=== PATIENT | female | born 1970 | race Caucasian/White ===

== ENCOUNTER 2020-05-16 11:25 | Observation (INO) | payer BC, OTHER ==
[2020-05-16] MEDS ORDERED: Sodium Chloride 0.9% 10 ML Syringe FLUSH PRN ×2 (11:31)
[2020-05-16] MEDS ORDERED: Sodium Chloride 0.9% 1,000 ML IV ONE (11:31)
[2020-05-16] MEDS ORDERED: Midazolam 1 MG/ML 2 ML SDV IVPUSH ONE (11:43)
--- NOTE | 2020-05-16 11:46 | EDM.PDOC ---
ED HPI GENERAL MEDICAL PROBLEM - General Chief Complaint: Trauma Stated Complaint: head injury Time Seen by Provider: 05/16/20 11:25 Source of Information: Reports: Family - History of Present Illness INITIAL COMMENTS - FREE TEXT/NARRATIVE: Maribel, 49-year-old female, presents by private vehicle unresponsive slumped in the front seat of a pickup driven by her . Secondary of poor positioning for assessment she was moved onto a cart as cautiously and rapid as possible to allow for assessment and extrication from the automotive to the emergency department. [place] was [place] her was scooping/pushing manure and had unearth a piece of pipe roughly 2 feet long. She had picked that up and was carrying it off to the side of the barn where it is unknown if she threw the pipe and it bounced back striking her, or if she stumbled and fell with a pipe striking her. When her came back in her direction with the skid steer she was unresponsive lying on the ground with the pipe next to her, contusion to the left side of the forehead was noted with mild bleeding. She awoke briefly but did not provide details of the injury and got to the vehicle at which time she became unresponsive in route. This was an unwitnessed event of the actual injury causation. Onset: Today, Sudden Duration: Minutes: Location: Reports: Head Left Frontal Head Pain Score (Numeric/FACES): 8 - Related Data Allergies Allergy/AdvReac Type Severity Reaction Status Date / Time ampicillin Allergy Rash Verified 02/23/18 19:48 Home Meds: Home Meds dimenhyDRINATE [Dramamine] 50 mg PO DAILY 08/02/13 [History] Erythromycin Base [Erythromycin 0.5% Ophth Oint] 1 applic TOP TID 02/23/18 [History] Lisdexamfetamine Dimesylate [Vyvanse] 70 mg PO DAILY 02/23/18 [History] Vitamin B Complex 1 each PO DAILY 02/23/18 [History] Past Medical History HEENT History: Reports: Impaired Vision Cardiovascular History: Reports: None APPLICATION SUPPORT INTERN History: Reports: Musculoskeletal History: Reports: Arthritis - Infectious Disease History Infectious Disease History: Reports: None - Past Surgical History GI Surgical History: Reports: Appendectomy, Cholecystectomy Female Surgical History: Reports: Hysterectomy - Past Imaging History Past Imaging History: Reports: Xray Social & Family History - Family History Family Medical History: Noncontributory - Caffeine Use Caffeine Use: Reports: Coffee, Soda - Alcohol Use Alcohol Use History: Yes Alcohol Use Frequency: Daily ED ROS GENERAL - Review of Systems Review Of Systems: Unable To Obtain Reason Not Obtained: unresposive ED EXAM, GENERAL - Physical Exam Exam: See Below Free Text/Narrative:: Unresponsive female with noted trauma to the left forehead. Talya coma score of 3. pupils are at 8 mm and very sluggish to reaction. She does not respond to sternal rub but maintains adequate respirations and heart rate. HEENT has a contusion abrasion with a small laceration to the left forehead with no active bleeding. The remainder of the scalp and skull are intact to visualization and palpation. There is negative blood in the auditory canals There is no trauma to the facial features no crepitus, no drainage, nasal passages are patent, no blood in the oropharynx. Cervical collar is placed as she is flaccid upon arrival. Thorax is clear diminished breath sounds, full throughout all cortes. As she is not following command for deep breath, but with no wheezes no crackles. Cardiac is regular I do not appreciate any murmur S1-S2. There is no trauma to the extremities noted. Abdomen is soft bowel sounds are present. Clothing is removed extremities are free of any injury there is no evidence of injury to the back nor to the buttocks. Pelvis is stable to AP compression. Skin is warm and dry with no edema to the extremities pulses correlate with apical heart rate. (Female) Exam: Deferred Rectal (Female) Exam: Deferred EKG INTERPRETATION EKG Date: 05/16/20 Time: 12:36 Rhythm: NSR Rate (Beats/Min): 78 P-Wave: Present QRS: Normal ST-T: Normal QT: Prolonged Comparison: NA - No Prior EKG Course - Vital Signs Last Recorded V/S: Last Vital Signs Temp 36.0 C L 05/16/20 11:40 Pulse 73 05/16/20 11:40 Resp 19 05/16/20 11:40 BP 117/72 05/16/20 11:40 Pulse Ox 100 05/16/20 11:40 - Orders/Labs/Meds Orders: Active Orders 24 hr Category Date Time Status Patient Status [ADT] Routine ADT 05/16/20 14:56 Ordered Assess Neurological Status [RC] ASDIRECTED Care 05/16/20 14:30 Active Insert Corrales Catheter [Insert Urinary Catheter] [OM.PC] Care 05/16/20 11:30 Ordered Q24H Neurovascular Check [RC] BID Care 05/16/20 14:17 Active Peripheral IV Care [RC] . DIRECTED Care 05/16/20 11:31 Active Peripheral IV Care [RC] . DIRECTED Care 05/16/20 11:32 Active Telemetry Monitoring [Cardiac Monitoring] [RC] . Care 05/16/20 14:16 Active DIRECTED Urinary Catheter Assessment [RC] ASDIRECTED Care 05/16/20 11:31 Active Vaccines to be Administered [RC] PER UNIT ROUTINE Care 05/16/20 12:50 Active Nothing Per Oral Diet [DIET] Diet 05/16/20 Dinner Ordered COMPREHENSIVE METABOLIC PN,CMP [CHEM] Stat Lab 05/17/20 05:11 Ordered ETHANOL BLOOD MEDICAL [CHEM] Stat Lab 05/16/20 18:00 Ordered TROPONIN I [CHEM] Stat Lab 05/16/20 18:00 Ordered Folic Acid Med 05/17/20 09:00 Active 1 mg IV DAILY Sodium Chloride 0.9% [Normal Saline] 1,000 ml Med 05/16/20 14:00 Active IV ASDIRECTED Sodium Chloride 0.9% [Saline Flush] Med 05/16/20 11:31 Active 10 ml FLUSH Q8HR PRN Sodium Chloride 0.9% [Saline Flush] Med 05/16/20 11:31 Active 10 ml FLUSH Q8HR PRN Peripheral IV Insertion Adult [OM.PC] Routine Oth 05/16/20 11:31 Ordered Peripheral IV Insertion Adult [OM.PC] Routine Oth 05/16/20 11:32 Ordered Code Status [Resuscitation Status] Stat Resus Stat 05/16/20 15:05 Ordered EKG 12 Lead [EK] Urgent Ther 05/16/20 12:12 Ordered Medication Orders Folic Acid (Folic Acid) 1 mg IV DAILY CITLALY Sodium Chloride (Normal Saline) 1,000 mls @ 150 mls/hr IV ASDIRECTED CITLALY Sodium Chloride (Saline Flush) 10 ml FLUSH Q8HR PRN PRN Reason: keep vein open Sodium Chloride (Saline Flush) 10 ml FLUSH Q8HR PRN PRN Reason: keep vein open Labs: Laboratory Tests 05/16/20 05/16/20 05/16/20 Range/Units 11:32 11:32 12:15 WBC 4.54 L (5.00-10.00) 10^3/uL RBC 4.07 (3.80-5.50) 10^6/uL Hgb 12.9 (12.0-16.0) g/dL Hct 38.7 (37.0-47.0) % MCV 95.1 H (82.0-92.0) fL MCH 31.7 H (27.0-31.0) pg MCHC 33.3 (32.0-36.0) g/dL RDW 13.0 (11.5-14.5) % Plt Count 261 (150-400) 10^3/uL MPV 9.8 (7.4-10.4) fL Immature Gran % (Auto) 0.0 (0.0-5.0) % Neut % (Auto) 65.8 (50.0-70.0) % Lymph % (Auto) 26.2 (20.0-40.0) % Orange % (Auto) 6.6 (2.0-8.0) % Eos % (Auto) 0.7 L (1.0-3.0) % Baso % (Auto) 0.7 (0.0-1.0) % Neut # (Auto) 2.99 (2.50-7.00) 10^3/uL Lymph # (Auto) 1.19 (1.00-4.00) 10^3/uL Orange # (Auto) 0.30 (0.10-0.80) 10^3/uL Eos # (Auto) 0.03 L (0.10-0.30) 10^3/uL Baso # (Auto) 0.03 (0.00-0.10) 10^3/uL Immature Gran # (Auto) 0.00 (0.00-0.50) 10^3/uL Sodium 142 (136-145) mmol/L Potassium 3.4 (3.3-5.3) mmol/L Chloride 104 (98-115) mmol/L Carbon Dioxide 24.5 (21.0-32.0) mmol/L Anion Gap 16.9 H (5-15) mmol/L BUN 9 (6-25) mg/dL Creatinine 0.75 (0.51-1.17) mg/dL Est Cr Clr Drug Dosing TNP Estimated GFR (MDRD) > 60 mL/min Glucose 102 H (75 - 99) mg/dL Calcium 8.8 (8.7-10.3) mg/dL Total Bilirubin 0.3 (0.2-1.0) mg/dL AST 20 (15-37) U/L ALT 21 (12-78) U/L Alkaline Phosphatase 68 (46-116) IU/L Troponin I 0.08 H* (0.00-0.070) ng/mL Total Protein 7.1 (6.4-8.2) g/dL Albumin 4.26 (3.00-4.80) g/dL Specimen Type Urincath Urine Color Light yellow (YELLOW) Urine Appearance Clear (CLEAR) Urine pH 7.0 (5.0-9.0) Ur Specific [place] 1.010 (1.005-1.030) Urine Protein Negative (NEGATIVE) mg/dL Urine Glucose (UA) Negative (NEGATIVE) mg/dL Urine Ketones Negative (NEGATIVE) mg/dL Urine Occult Blood Trace-intact H (NEGATIVE) Urine Nitrite Negative (NEGATIVE) Urine Bilirubin Negative (NEGATIVE) Urine Urobilinogen 0.2 (0.2-1.0) E.U./dL Ur Leukocyte Esterase Negative (NEGATIVE) Urine RBC 0-5 (0-5) /HPF Urine WBC 0-5 (0-5) /HPF Ur Epithelial Cells Few /LPF Amorphous Sediment Moderate H (0/HPF) /HPF Urine Bacteria Few (NONE TO FEW) /HPF Urine Opiates Screen (NEGATIVE) Ur Oxycodone Screen (NEGATIVE) Urine Methadone Screen (NEGATIVE) Ur Propoxyphene Screen (NEGATIVE) Ur Barbiturates Screen (NEGATIVE) Ur Tricyclics Screen (NEGATIVE) Ur Phencyclidine Scrn (NEGATIVE) Ur Amphetamine Screen (NEGATIVE) U Methamphetamines Scrn (NEGATIVE) U Benzodiazepines Scrn (NEGATIVE) U Cocaine Metab Screen (NEGATIVE) U Marijuana (THC) Screen (NEGATIVE) Ethyl Alcohol 207 H* (NONE DETECTED) mg/dL SARS CoV-2 RNA Rapid VIPIN (NEGATIVE) 05/16/20 05/16/20 Range/Units 12:15 14:28 WBC (5.00-10.00) 10^3/uL RBC (3.80-5.50) 10^6/uL Hgb (12.0-16.0) g/dL Hct (37.0-47.0) % MCV (82.0-92.0) fL MCH (27.0-31.0) pg MCHC (32.0-36.0) g/dL RDW (11.5-14.5) % Plt Count (150-400) 10^3/uL MPV (7.4-10.4) fL Immature Gran % (Auto) (0.0-5.0) % Neut % (Auto) (50.0-70.0) % Lymph % (Auto) (20.0-40.0) % Orange % (Auto) (2.0-8.0) % Eos % (Auto) (1.0-3.0) % Baso % (Auto) (0.0-1.0) % Neut # (Auto) (2.50-7.00) 10^3/uL Lymph # (Auto) (1.00-4.00) 10^3/uL Orange # (Auto) (0.10-0.80) 10^3/uL Eos # (Auto) (0.10-0.30) 10^3/uL Baso # (Auto) (0.00-0.10) 10^3/uL Immature Gran # (Auto) (0.00-0.50) 10^3/uL Sodium (136-145) mmol/L Potassium (3.3-5.3) mmol/L Chloride (98-115) mmol/L Carbon Dioxide (21.0-32.0) mmol/L Anion Gap (5-15) mmol/L BUN (6-25) mg/dL Creatinine (0.51-1.17) mg/dL Est Cr Clr Drug Dosing Estimated GFR (MDRD) mL/min Glucose (75 - 99) mg/dL Calcium (8.7-10.3) mg/dL Total Bilirubin (0.2-1.0) mg/dL AST (15-37) U/L ALT (12-78) U/L Alkaline Phosphatase (46-116) IU/L Troponin I (0.00-0.070) ng/mL Total Protein (6.4-8.2) g/dL Albumin (3.00-4.80) g/dL Specimen Type Urine Color (YELLOW) Urine Appearance (CLEAR) Urine pH (5.0-9.0) Ur Specific [place] (1.005-1.030) Urine Protein (NEGATIVE) mg/dL Urine Glucose (UA) (NEGATIVE) mg/dL Urine Ketones (NEGATIVE) mg/dL Urine Occult Blood (NEGATIVE) Urine Nitrite (NEGATIVE) Urine Bilirubin (NEGATIVE) Urine Urobilinogen (0.2-1.0) E.U./dL Ur Leukocyte Esterase (NEGATIVE) Urine RBC (0-5) /HPF Urine WBC (0-5) /HPF Ur Epithelial Cells /LPF Amorphous Sediment (0/HPF) /HPF Urine Bacteria (NONE TO FEW) /HPF Urine Opiates Screen Negative (NEGATIVE) Ur Oxycodone Screen Negative (NEGATIVE) Urine Methadone Screen Negative (NEGATIVE) Ur Propoxyphene Screen Negative (NEGATIVE) Ur Barbiturates Screen Negative (NEGATIVE) Ur Tricyclics Screen Negative (NEGATIVE) Ur Phencyclidine Scrn Negative (NEGATIVE) Ur Amphetamine Screen Positive H (NEGATIVE) U Methamphetamines Scrn Negative (NEGATIVE) U Benzodiazepines Scrn Negative (NEGATIVE) U Cocaine Metab Screen Negative (NEGATIVE) U Marijuana (THC) Screen Negative (NEGATIVE) Ethyl Alcohol (NONE DETECTED) mg/dL SARS CoV-2 RNA Rapid VIPIN Negative (NEGATIVE) Meds: Medications Generic Name Dose Route Start Last Admin Trade Name Freq PRN Reason Stop Dose Admin Folic Acid 1 mg 05/17/20 09:00 Folic Acid IV DAILY CITLALY Sodium Chloride 1,000 mls @ 150 mls/hr 05/16/20 14:00 Normal Saline IV ASDIRECTED CITLALY Sodium Chloride 10 ml 05/16/20 11:31 Saline Flush FLUSH Q8HR PRN keep vein open Sodium Chloride 10 ml 05/16/20 11:31 Saline Flush FLUSH Q8HR PRN keep vein open Discontinued Medications Generic Name Dose Route Start Last Admin Trade Name Freq PRN Reason Stop Dose Admin Diphtheria/Tetanus/Acell Pertussis 0.5 ml 05/16/20 12:50 05/16/20 13:13 Adacel IM 05/16/20 12:51 0.5 ml .ONCE ONE Administration Sodium Chloride 1,000 mls @ 999 mls/hr 05/16/20 11:31 05/16/20 12:13 Normal Saline IV 05/16/20 12:31 999 mls/hr .BOLUS ONE Administration Thiamine HCl 100 mg/ Sodium 101 mls @ 202 mls/hr 05/16/20 13:43 05/16/20 15:10 Chloride IV 05/16/20 13:44 202 mls/hr ONETIME ONE Administration Midazolam HCl 2 mg 05/16/20 11:43 05/16/20 11:50 Versed 1 Mg/Ml IVPUSH 05/16/20 11:44 2 mg ONETIME ONE Administration Thiamine HCl 50 mg 05/16/20 13:41 05/16/20 15:00 Vitamin B-1 IM 05/16/20 13:42 50 mg ONETIME ONE Administration - Re-Assessments/Exams Free Text/Narrative Re-Assessment/Exam: 05/16/20 12:20 At the time preparing conclusion of the chest x-ray done by portable and moving for the CT, Maribel became awake and agitated. At that time 2 mg of Versed was ordered so we would be able to obtain quality scans. She settled down nicely was cooperative for the test and has been resting comfortably with vitals remaining stable saturations stable with 2 L nasal cannula. Chest x-ray did not demonstrate any hemopneumothorax, I see no significant infil trate, initial alcohol returning at 207 with a normal white count and hemoglobin. Departure - Departure Time of Disposition: 15:07 Disposition: Refer to Observation Condition: Fair Clinical Impression: Concussion with brief (less than one hour) loss of consciousness, Alcohol intoxication, Abrasion of head, Contusion of head, Unresponsive state - Discharge Information *PRESCRIPTION DRUG MONITORING PROGRAM REVIEWED*: Not Applicable *COPY OF PRESCRIPTION DRUG MONITORING REPORT IN PATIENT NAS: Not Applicable Referrals: Sierra Duran MD [Primary Care Provider] - Forms: ED Department Discharge Additional Instructions: admission to observation status, Dr Duran. Sepsis Event Note (ED) - Focused Exam Vital Signs: Vital Signs Temp Pulse Resp BP Pulse Ox 05/16/20 11:40 36.0 C L 73 19 117/72 100 05/16/20 11:30 35.8 C L 72 19 136/82 97 ED Communication - Discussed Case With (1) Discussed Case With (1): Admitting Provider Person/s Notified (1): Sierra Duran Person/s Notified (2): Sierra Duran Date: 05/16/20 - Problem List & Annotations (1) Unresponsive state SNOMED Code(s): 039323609 Code(s): R41.89 - OTH SYMPTOMS AND SIGNS W COGNITIVE FUNCTIONS AND AWARENESS Status: Acute Priority: High Current Visit: Yes (2) Contusion of head SNOMED Code(s): 850828366 Code(s): S00.93XA - CONTUSION OF UNSPECIFIED PART OF HEAD, INITIAL ENCOUNTER Status: Acute Priority: High Current Visit: Yes Qualifiers: Encounter type: initial encounter (3) Abrasion of head SNOMED Code(s): 817850257 Code(s): S00.91XA - ABRASION OF UNSPECIFIED PART OF HEAD, INITIAL ENCOUNTER Status: Acute Priority: High Current Visit: Yes Qualifiers: Encounter type: initial encounter Qualified Code(s): S00.91XA - Abrasion of unspecified part of head, initial encounter (4) Alcohol intoxication SNOMED Code(s): 48020331 Code(s): F10.929 - ALCOHOL USE, UNSPECIFIED WITH INTOXICATION, UNSPECIFIED Status: Acute Priority: High Current Visit: Yes Qualifiers: Complication of substance-induced condition: uncomplicated Qualified Code(s): F10.920 - Alcohol use, unspecified with intoxication, uncomplicated (5) COVID-19 ruled out by laboratory testing SNOMED Code(s): 589148581, 549493051 Code(s): Z03.818 - ENCNTR FOR OBS FOR SUSP EXPSR TO OTH BIOLG AGENTS RULED OUT Status: Acute Current Visit: Yes - Problem List Review Problem List Initiated/Reviewed/Updated: Yes - My Orders Last 24 Hours: My Active Orders 05/16/20 11:30 Insert Corrales Catheter [Insert Urinary Catheter] [OM.PC] Q24H 05/16/20 11:31 Peripheral IV Care [RC] . DIRECTED Urinary Catheter Assessment [RC] ASDIRECTED Sodium Chloride 0.9% [Saline Flush] 10 ml FLUSH Q8HR PRN Sodium Chloride 0.9% [Saline Flush] 10 ml FLUSH Q8HR PRN Peripheral IV Insertion Adult [OM.PC] Routine 05/16/20 11:32 Peripheral IV Care [RC] . DIRECTED Peripheral IV Insertion Adult [OM.PC] Routine 05/16/20 12:12 EKG 12 Lead [EK] Urgent 05/16/20 12:50 Vaccines to be Administered [RC] PER UNIT ROUTINE 05/16/20 14:00 Sodium Chloride 0.9% [Normal Saline] 1,000 ml IV ASDIRECTED 05/16/20 14:16 Telemetry Monitoring [Cardiac Monitoring] [RC] . DIRECTED 05/16/20 14:17 Neurovascular Check [RC] BID 05/16/20 14:30 Assess Neurological Status [RC] ASDIRECTED 05/16/20 14:56 Patient Status [ADT] Routine 05/16/20 15:05 Code Status [Resuscitation Status] Stat 05/16/20 Dinner Nothing Per Oral Diet [DIET] ETHANOL BLOOD MEDICAL [CHEM] Stat TROPONIN I [CHEM] Stat 05/17/20 05:11 COMPREHENSIVE METABOLIC PN,CMP [CHEM] Stat 05/17/20 09:00 Folic Acid 1 mg IV DAILY - Assessment/Plan Admission H&P: Please use this note as an admission H&P Last 24 Hours: My Active Orders 05/16/20 11:30 Insert Corrales Catheter [Insert Urinary Catheter] [OM.PC] Q24H 05/16/20 11:31 Peripheral IV Care [RC] . DIRECTED Urinary Catheter Assessment [RC] ASDIRECTED Sodium Chloride 0.9% [Saline Flush] 10 ml FLUSH Q8HR PRN Sodium Chloride 0.9% [Saline Flush] 10 ml FLUSH Q8HR PRN Peripheral IV Insertion Adult [OM.PC] Routine 05/16/20 11:32 Peripheral IV Care [RC] . DIRECTED Peripheral IV Insertion Adult [OM.PC] Routine 05/16/20 12:12 EKG 12 Lead [EK] Urgent 05/16/20 12:50 Vaccines to be Administered [RC] PER UNIT ROUTINE 05/16/20 14:00 Sodium Chloride 0.9% [Normal Saline] 1,000 ml IV ASDIRECTED 05/16/20 14:16 Telemetry Monitoring [Cardiac Monitoring] [RC] . DIRECTED 05/16/20 14:17 Neurovascular Check [RC] BID 05/16/20 14:30 Assess Neurological Status [RC] ASDIRECTED 05/16/20 14:56 Patient Status [ADT] Routine 05/16/20 15:05 Code Status [Resuscitation Status] Stat 05/16/20 Dinner Nothing Per Oral Diet [DIET] ETHANOL BLOOD MEDICAL [CHEM] Stat TROPONIN I [CHEM] Stat 05/17/20 05:11 COMPREHENSIVE METABOLIC PN,CMP [CHEM] Stat 05/17/20 09:00 Folic Acid 1 mg IV DAILY Plan: admission to observation status, Dr Duran.
[2020-05-16 12:14] LABS: ANION GAP 16.9 mmol/L (5-15); CHLORIDE,CL 104 mmol/L (98-115); SODIUM,NA 142 mmol/L (136-145)
--- NOTE | 2020-05-16 12:21 | CR ---
[id number] RAD/RAD Chest PA or AP 1V EXAM: SINGLE VIEW CHEST. INDICATION: UNRESPONSIVE PATIENT COMPARISON: CORRELATION IS MADE WITH JANUARY 09, 2017 FINDINGS: The lungs are clear The cardiac silhouette is normal IMPRESSION: NO ACUTE PROCESS Josue Villafana MD 05/16/20 [id number] Thank you for allowing us to participate in the care of your patient.
--- NOTE | 2020-05-16 12:49 | CT ---
[id number] CT/CT Head WO IV EXAM: CT Head WO IV CLINICAL DATA: TRAUMA COMPARISON: CORRELATION IS MADE WITH JUNE 01, 2008 FINDINGS: There is no mass or mass effect. There is no hemorrhage or hydrocephalus. There are no extra-axial fluid collections. There are no sites of abnormal attenuation. IMPRESSION: NO PLAIN CT EVIDENCE OF ACUTE INTRACRANIAL PROCESS. Josue Villafana MD 05/16/20 [phone] Thank you for allowing us to participate in the care of your patient.
[2020-05-16] MEDS ORDERED: Diphtheria,Pertussis(Acell),Tetanus Vaccine 0.5 ML SDV IM ONE (12:50)
--- NOTE | 2020-05-16 12:52 | CT ---
[id number] CT/CT Cervical Spine WO IV Exam: CT Cervical Spine WO IV Clinical Data: TRAUMA COMPARISON: NO PREVIOUS SIMILAR EXAM IS AVAILABLE FINDINGS: No fracture or subluxation is seen There are degenerative changes of the lower cervical spine The prevertebral soft tissues are unremarkable IMPRESSION: NO FRACTURE OR SUBLUXATION Josue Villafana MD 05/16/20 [id number] Thank you for allowing us to participate in the care of your patient.
[2020-05-16 12:59] LABS: BARBITURATE SCREEN,URINE NEGATIVE (NEGATIVE)
[2020-05-16 13:00] LABS: BENZODIAZEPINES SCREEN,URINE NEGATIVE (NEGATIVE); TCA SCREEN,URINE NEGATIVE (NEGATIVE); THC SCREEN,URINE 50 NG/ML NEGATIVE (NEGATIVE)
[2020-05-16] MEDS ORDERED: Thiamine 200 MG/2 ML MDV IM ONE (13:41)
[2020-05-16] MEDS ORDERED: Thiamine 100 MG in Sodium Chloride 0.9% 100 ML IV ONE (13:43)
[2020-05-16] MEDS: Sodium Chloride 0.9% 1,000 ML IV SCH ×2 (15:14→22:06)
[2020-05-16] MEDS ORDERED: Folic Acid 50 MG/10 ML MDV IV SCH (15:22)
[2020-05-16] MEDS ORDERED: Ketorolac 60 MG/2 ML SDV IM ONE (15:57)
[2020-05-17] MEDS: Sodium Chloride 0.9% 1,000 ML IV SCH (04:30)
[2020-05-17 08:22] LABS: ANION GAP 14.5 mmol/L (5-15); CHLORIDE,CL 110 mmol/L (98-115); SODIUM,NA 146 mmol/L (136-145)
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
[2020-05-17] MEDS ORDERED: Folic Acid 50 MG/10 ML MDV IV SCH (09:00)
== END 2020-05-17 10:40 | disposition home or self-care (01) ==
LOC: KA.ED 11:25 → UNDOADMOB 14:56 → KA.MS 14:56 → UNDODISOB 05-17 10:40
PROVIDERS: ADMIT Internal Medicine; ATTEND Internal Medicine
DX: S06.0X9A Concussion with loss of consciousness of unspecified duration, initial encounter (principal); S00.93XA Contusion of unspecified part of head, initial encounter; F10.120 Alcohol abuse with intoxication, uncomplicated; Z20.828 Contact with and (suspected) exposure to other viral communicable diseases; R79.89 Other specified abnormal findings of blood chemistry; F98.8 Other specified behavioral and emotional disorders with onset usually occurring in childhood and adolescence; Z88.0 Allergy status to penicillin; W22.8XXA Striking against or struck by other objects, initial encounter; Y90.0 Blood alcohol level of less than 20 mg/100 ml
CPT/HCPCS: 36415; 51702; 70450; 71045; 72125; 80053; 80305; 80307; 81001; 84484; 85025; 87635; 90471; 90715; 93005; 96361; 96365; 96372; 99285; G0378; J1885; J2250; J3411; J7030; J7050; 99217; 99220; J3490; U0002

== ENCOUNTER 2025-05-19 10:48 | Day surgery (SDC) | payer BC ==
[2025-05-19] MEDS ORDERED: Sodium Chloride 0.9% 10 ML Syringe FLUSH PRN (11:00)
[2025-05-19] MEDS: Lactated Ringers 1,000 ML IV SCH (11:19)
[2025-05-19] MEDS ORDERED: Propofol 200 MG/20 ML SDV ONE ×2 (12:07→12:14)
[2025-05-19] MEDS ORDERED: Midazolam 1 MG/ML 2 ML SDV ONE (12:07)
== END 2025-05-19 14:04 | disposition home or self-care (01) ==
LOC: KA.SDS 10:48
PROVIDERS: ATTEND Surgery
DX: K31.A11 Gastric intestinal metaplasia without dysplasia, involving the antrum (principal); K31.89 Other diseases of stomach and duodenum; K44.9 Diaphragmatic hernia without obstruction or gangrene; Z88.1 Allergy status to other antibiotic agents; Z88.8 Allergy status to other drugs, medicaments and biological substances; Z79.899 Other long term (current) drug therapy
CPT/HCPCS: 00731; 88305; J1596; J2250; J2704; J7120